=== PATIENT | female | born 1980 | race Caucasian/White ===

== ENCOUNTER 2020-09-24 21:17 | Observation (INO) | payer OTHER, SELFPAY ==
[~2020-09-24] VITALS: Ht 162.6 cm; Wt 99.8 kg
[2020-09-24 21:30] VITALS: BP 140/80
--- NOTE | 2020-09-24 21:30 | NUR ---
TO LOBBY A/W BED AMBULATORY
--- NOTE | 2020-09-24 22:10 | NUR ---
TO BED AMBULATORY
--- NOTE | 2020-09-24 22:15 | NUR ---
PATIENT PRESENTS TO ED WITH C/O FLANK PAIN . DENIES N/V/D; SKIN IS PINK/WARM/DRY; AAOX4 WITH EVEN AND STEADY GAIT; LUNGS CLEAR BL; HR EVEN AND REGULAR; PT DENIES ANY FEVER, CP, SOB, OR COUGH AT THIS TIME; VSS; PATIENT POSITIONED FOR COMFORT; HOB ELEVATED; BEDRAILS UP X2; BED DOWN. ER MD MADE AWARE OF PT STATUS.
--- NOTE | 2020-09-24 22:25 | NUR ---
DR. DUMONT AT BEDSIDE FOR EXAM
[2020-09-24 22:50] LABS: APPEARANCE,URINE HAZY (CLEAR); BILIRUBIN,URINE NEGATIVE (NEGATIVE); BLOOD, URINE 3+ (NEGATIVE); COLOR,URINE YELLOW (YELLOW); LEUKOCYTE ESTERASE ,URINE 2+ (NEGATIVE); NITRITE, URINE NEGATIVE (NEGATIVE); UGLUCOSE NEGATIVE (NEGATIVE)
[2020-09-24] MEDS ORDERED: NACL 0.9% 1,000 ML IV ONE (22:50)
[2020-09-24] MEDS ORDERED: MORPHINE SULFATE 2 MG/ML SYR IVP ONE (22:50)
[2020-09-24] MEDS ORDERED: ONDANSETRON 4 MG/2 ML VIAL IVP ONE (22:50)
[2020-09-24] MEDS ORDERED: KETOROLAC 30 MG/ML VIAL IVP ONE (22:50)
[2020-09-24 23:01] LABS: BASOPHILS # (AUTO) 0.1 K/uL (0.00-0.22); BASOPHILS % (AUTO) 1.2 % (0.0-2.0); EOSINOPHILS # (AUTO) 0.1 K/uL (0-0.4); EOSINOPHILS % (AUTO) 1.2 % (0.0-4.0); HEMATOCRIT 40.9 % (36-48); HEMOGLOBIN 13.9 g/dL (12.0-16.0); LYMPHOCYTES # (AUTO) 3.1 K/uL (2.5-16.5); LYMPHOCYTES % (AUTO) 28.5 % (20.5-51.1); MEAN CORPUSCULAR HEMOGLOBIN 30 pg (27-31); MEAN CORPUSCULAR HGB CONC 34 g/dL (33-37); MEAN CORPUSCULAR VOLUME 87.4 fL (80-94); MONOCYTES # (AUTO) 0.8 K/uL (0.8-1.0); MONOCYTES % (AUTO) 7.1 % (1.7-9.3); NEUTROPHILS # (AUTO) 6.7 K/uL (1.8-7.7); PLATELET COUNT (AUTO) 377 K/uL (140-450); RED BLOOD CELL COUNT(AUTO) 4.67 MIL/uL (4.20-5.40); RED CELL DISTRIBUTION WIDTH 14.7 % (11.6-13.7); WHITE BLOOD COUNT (AUTO) 10.9 K/uL (4.8-10.8)
[2020-09-24 23:13] LABS: RBC,URINE 0-5 /HPF (0-5); WBC,URINE TOO MANY TO COUNT /HPF (0-5)
[2020-09-24 23:22] LABS: ALBUMIN 3.5 g/dL (3.4-5.0); ANION GAP 11.6 (8-16); CARBON DIOXIDE 27.2 mmol/L (21-32); CREATININE 1.3 mg/dL (0.6-1.3); POTASSIUM 3.8 mmol/L (3.5-5.1); TOTAL BILIRUBIN 0.2 mg/dL (0.0-1.0)
[2020-09-25] MEDS ORDERED: cefTRIAXone 1,000 MG VIAL ONE (01:22)
--- NOTE | 2020-09-25 01:40 | NUR ---
RESTING WITH EYES CLOSED, RESPIRATIONS REGULAR AND UNLABORED
--- NOTE | 2020-09-25 02:13 | NUR ---
Note alvarez in EDM - 09/25/20 at 0252 by MARYURI Patient discharged with v/s stable. Written and verbal after care instructions given and explained. Patient verbalized understanding. Ambulatory with steady gait. All questions addressed prior to discharge. Advised to follow up with PMD.
--- NOTE | 2020-09-25 03:25 | NUR ---
AWAKING, HAS BEEN SLEEPING. NOW STATES IS FEELING BETTER. COVID/ ELA SWAB OBTAINED AND SENT TO LAB
--- NOTE | 2020-09-25 06:00 | NUR ---
Patient appears to be resting comfortably in bed. Vital Signs within normal limits. Respirations even and unlabored.
--- NOTE | 2020-09-25 06:38 | NUR ---
SPOKE WITH DR. HESTER
[2020-09-25] MEDS ORDERED: ACETAMINOPHEN 325 MG TAB PO PRN (06:50)
[2020-09-25] MEDS ORDERED: HYDROcodone/APAP 5/325 MG 1 TAB TAB PO PRN (06:50)
[2020-09-25] MEDS ORDERED: NACL 0.9% 1,000 ML IV SCH (06:50)
[2020-09-25] MEDS ORDERED: ONDANSETRON 4 MG/2 ML VIAL IVP PRN (06:50)
--- NOTE | 2020-09-25 07:15 | NUR ---
RECEIVED REPORT FROM EDMAR HOUGH. ALL CARE TRANSFERRED AT THIS TIME.
--- NOTE | 2020-09-25 07:44 | NUR ---
report given to kandy hughes
--- NOTE | 2020-09-25 07:54 | NUR ---
Patient will be admitted to care of DR SERRANO. Admited to MED SURG. Will go to [id number]. Belongings list completed. Report to EDMAR MCCORMICK.
--- NOTE | 2020-09-25 08:00 | NUR ---
RECEIVED REPORT FROM ER NURSE. ADMITTED 40 Y/O FEMALE FROM HOME. CC OF FLANK PAIN. 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 PT IS AOX4, ABLE TO MAKE NEEDS KNOWN, AMBULATORY, B/B CONTINENT, WITH C/O FLANK PAIN 8/10, WILL MEDICATE. NO RESPIRATORY DISTRESS. SKIN IS INTACT. PLAN OF CARE DISCUSSED. CALL LIGHT WITHIN REACH. WILL CONTINUE TO MONITOR
--- NOTE | 2020-09-25 09:00 | NUR ---
MORPHINE GIVEN FOR PAIN AND ZOFRAN GIVEN FOR NAUSEA ORDERED. OTHER DUE MEDS GIVEN
[2020-09-25] MEDS: MORPHINE SULFATE 4 MG/ML SYR IVP PRN ×2 (09:04→14:25)
[2020-09-25 10:32] VITALS: BP 121/67
--- NOTE | 2020-09-25 11:15 | NUR ---
PT ASLEEP IN BED AT THIS TIME. NO APPARENT DISTRESS
--- NOTE | 2020-09-25 12:23 | NUR ---
PATIENT HAS BEEN SCREENED AND CATEGORIZED LOW NUTRITION RISK. PATIENT WILL BE SEEN WITHIN 7 DAYS OF ADMISSION. 10/01/[address]
[2020-09-25] MEDS ORDERED: CIPR500T4 PO (13:22)
[2020-09-25] MEDS ORDERED: TAMS0.4C96 PO (13:22)
--- NOTE | 2020-09-25 13:30 | NUR ---
SEEN BY DR HESTER
--- NOTE | 2020-09-25 14:48 | NUR ---
DC PLANNING: SPOKE WITH PATIENT AT BEDSIDE. PATIENT WAS ADMITTED FOR RECURRENT NEPHROLITHIASIS, H/O NEPHROSTOMY TUBE. LIVES IN A GROUND FLOOR APARTMENT WITH HER SISTER IN [place], CAN'T REMEMBER THE ADDRESS. HAS HAD HOME HEALTH IN THE PAST, CAN'T REMEMBER THEIR NAME, STATES THEY'RE THE CAUSE OF HER RECENT HEALTH ISSUES, UNCLEAR WHY. NO DME, PATIENT IS INDEPENDENT IN ALL ACTIVITIES. PLAN IS TO RETURN HOME WHEN CLEARED, PATIENT STATES SHE MIGHT NEED A TAXI VOUCHER, ENDORSED THIS TO ELKIN HYATT. CM WILL CONTINUE TO FOLLOW FOR NEEDS.
--- NOTE | 2020-09-25 14:55 | NUR ---
DISCHARGE INSTRUCTIONS AND PRESCRIPTION GIVEN. IV AND ID BAND REMOVED. PT VERBALIZED UNDERSTANDING
--- NOTE | 2020-09-25 15:15 | NUR ---
DISCHARGED PT ASSISTED TO FRONT LOBBY
[2020-09-26] MEDS ORDERED: TAMSULOSIN 0.4 MG CAP PO SCH (08:30)
== END 2020-09-25 15:15 | disposition home or self-care (01) ==
LOC: MED 21:17 → MTU 09-25 06:50
PROVIDERS: ADMIT Internal Medicine; ATTEND Internal Medicine
DX: N13.2 Hydronephrosis with renal and ureteral calculous obstruction (principal); N39.0 Urinary tract infection, site not specified; Z20.822 Contact with and (suspected) exposure to COVID-19; E66.9 Obesity, unspecified; Z68.37 Body mass index [BMI] 37.0-37.9, adult; Z79.899 Other long term (current) drug therapy
CPT/HCPCS: 36415; 74176; 80053; 81001; 85025; 87081; 87086; 87186; 87426; 96361; 96365; 96375; 96376; 99285; G0378; J0696; J1644; J1885; J2270; J2405; J7030; J7060